=== PATIENT | male | born 1960 | race Caucasian/White ===

== ENCOUNTER 2018-10-27 07:15 | Day surgery (SDC) | payer OTHER ==
[2018-10-27 08:23] LABS: ADD MAN DIFF? NO
[2018-10-27 08:29] LABS: BASOPHIL # 0.1 10^3/ul (0.0-0.1); BASOPHILS % 0.9 % (0.0-2.0); EOSINOPHILS # 0.4 10^3/ul (0.0-0.5); EOSINOPHILS % 7.4 % (0.0-7.0); HEMATOCRIT 47.6 % (42.0-52.0); HEMOGLOBIN 15.7 g/dl (14.0-18.0); LYMPHOCYTES # 1.4 10^3/ul (0.8-2.9); LYMPHOCYTES % 23.8 % (15.0-51.0); MEAN CORPUSCULAR HEMOGLOBIN 29.3 pg (29.0-33.0); MEAN CORPUSCULAR VOLUME 88.8 fl (82.0-101.0); MONOCYTE # 0.5 10^3/ul (0.3-0.9); MONOCYTES % 8.8 % (0.0-11.0); NEUTROPHIL # 3.4 10^3/ul (1.6-7.5); NEUTROPHILS % 58.9 % (39.0-77.0); PLATELET COUNT 229 10^3/UL (140-415); RED BLOOD COUNT 5.36 10^6/ul (4.70-6.10); RED CELL DISTRIBUTION WIDTH 11.9 % (11.5-14.5)
[2018-10-27 08:29] LABS: WHITE BLOOD COUNT 5.8 10^3/ul (4.8-10.8)
[2018-10-27 08:47] LABS: INR 1.01; PROTIME 13.4 Sec (11.9-14.9)
[2018-10-27 08:48] LABS: PARTIAL THROMBOPLASTIN TIME 26.6 Sec (23.0-35.0)
[2018-10-27 08:50] LABS: ALANINE AMINOTRANSFERASE 26 IU/L (13-69); ALBUMIN 4.1 g/dl (3.3-4.9); ALKALINE PHOSPHATASE 93 IU/L (42-121); ANION GAP 8 (5-13); ASPARTATE AMINO TRANSFERASE 31 IU/L (15-46); BILIRUBIN,INDIRECT 0.5 mg/dl (0-1.1); BILIRUBIN,TOTAL 0.5 mg/dl (0.2-1.3); BLOOD UREA NITROGEN 18 mg/dl (7-20); CARBON DIOXIDE 26 mmol/L (21-31); CHLORIDE 105 mmol/L (97-110); CREATININE 1.04 mg/dl (0.61-1.24); Estimated GFR > 60 mL/min (>60); GLUCOSE 100 mg/dl (70-220); POTASSIUM 4.8 mmol/L (3.5-5.1); SODIUM 139 mmol/L (135-144); TOTAL PROTEIN 7.5 g/dl (6.1-8.1)
[2018-10-27] MEDS ORDERED: OXYCODONE/ACETAMINOPHEN (5/325) TAB PO ×2 (09:00)
[2018-10-27] MEDS ORDERED: FENTAnyl 50 MCG/ML VIAL IV ×3 (09:00)
[2018-10-27] MEDS ORDERED: MEPERIDINE 25 MG INJ IV (09:00)
[2018-10-27] MEDS ORDERED: ONDANSETRON 4 MG INJ IV (09:00)
[2018-10-27] MEDS ORDERED: PROPOFOL 20 ML (09:02)
[2018-10-27] MEDS ORDERED: LIDOCAINE 2% (SDV) 5 ML INJ (09:02)
[2018-10-27] MEDS ORDERED: FENTAnyl 50 MCG/ML VIAL (09:02)
[2018-10-27] MEDS ORDERED: MIDAZOLAM 1 MG/ML 2 ML INJ (09:02)
[2018-10-27] MEDS ORDERED: CEFAZOLIN 1 GM INJ (09:02)
[2018-10-27] MEDS ORDERED: ONDANSETRON 4 MG INJ (10:12)
[2018-10-27] MEDS ORDERED: METOCLOPRAMIDE 10 MG INJ (10:12)
[2018-10-27] MEDS ORDERED: DEXAMETHASONE 4 MG/ML 5 ML INJ (10:12)
[2018-10-27] MEDS: LIDOCAINE 1% (MPF) 30 ML INJ (10:21)
[2018-10-27] MEDS: BUPIVACAINE 0.25%/EPI (SDV) 30 ML INJ (10:21)
== END 2018-10-27 12:16 | disposition home or self-care (01) ==
LOC: SDS 07:15
DX: D17.1 Benign lipomatous neoplasm of skin and subcutaneous tissue of trunk (principal)
CPT/HCPCS: 14000; 71045; 80053; 85025; 85610; 85730; 88304; 93005